=== PATIENT | male | born 1980 | race Two or more races ===

== ENCOUNTER 2017-04-17 17:55 | Emergency (ER) | payer MEDICAID ==
[~2017-04-17] VITALS: Ht 172.7 cm; Wt 88.5 kg
[~2017-04-17 17:55] MED LIST: TRAMADOL
[2017-04-17 18:01] VITALS: BP 114/99
[2017-04-17] MEDS ORDERED: IBUPROFEN 600 MG TAB PO ONE (19:30)
== END 2017-04-17 22:07 ==
LOC: ER 18:00
DX: S43.101A Unspecified dislocation of right acromioclavicular joint, initial encounter (principal); S50.01XA Contusion of right elbow, initial encounter; S80.11XA Contusion of right lower leg, initial encounter; R51 Headache; F17.210 Nicotine dependence, cigarettes, uncomplicated; E78.5 Hyperlipidemia, unspecified; M10.9 Gout, unspecified; I48.91 Unspecified atrial fibrillation; M19.90 Unspecified osteoarthritis, unspecified site; Z88.0 Allergy status to penicillin; V43.62XA Car passenger injured in collision with other type car in traffic accident, initial encounter; Y93.89 Activity, other specified; Y92.488 Other paved roadways as the place of occurrence of the external cause; Y99.8 Other external cause status
CPT/HCPCS: 70450; 73030; 73070; 73590

== ENCOUNTER 2017-07-01 12:57 | Emergency (ER) | payer MEDICAID, OTHER ==
[~2017-07-01] VITALS: Ht 170.2 cm; Wt 94.3 kg
[2017-07-01 13:02] VITALS: BP 145/94
[2017-07-01] MEDS ORDERED: KETOROLAC TROMETH 60MG/2ML VIAL IM ONE (14:30)
== END 2017-07-01 15:17 | disposition home or self-care (01) ==
LOC: ER 12:57
DX: G89.29 Other chronic pain (principal); M54.42 Lumbago with sciatica, left side; M10.9 Gout, unspecified; F17.210 Nicotine dependence, cigarettes, uncomplicated; M54.5 Low back pain; E78.5 Hyperlipidemia, unspecified; M19.90 Unspecified osteoarthritis, unspecified site; R03.0 Elevated blood-pressure reading, without diagnosis of hypertension; Z88.0 Allergy status to penicillin; Z88.1 Allergy status to other antibiotic agents
CPT/HCPCS: 96372; 99283; J1885

== ENCOUNTER 2017-10-28 08:03 | Emergency (ER) | payer OTHER ==
[~2017-10-28] VITALS: Ht 172.7 cm; Wt 95.3 kg
[2017-10-28 08:09] VITALS: BP 169/83
== END 2017-10-28 08:57 | disposition home or self-care (01) ==
LOC: ER 08:03
DX: S61.304A Unspecified open wound of right ring finger with damage to nail, initial encounter (principal); E78.5 Hyperlipidemia, unspecified; M19.90 Unspecified osteoarthritis, unspecified site; F17.210 Nicotine dependence, cigarettes, uncomplicated; F12.10 Cannabis abuse, uncomplicated; F15.10 Other stimulant abuse, uncomplicated; Z88.0 Allergy status to penicillin; W22.8XXA Striking against or struck by other objects, initial encounter; Y93.89 Activity, other specified; Y92.89 Other specified places as the place of occurrence of the external cause; Y99.8 Other external cause status

== ENCOUNTER 2019-03-29 10:14 | Emergency (ER) | payer MEDICAID ==
[~2019-03-29] VITALS: Ht 172.7 cm; Wt 81.6 kg
[2019-03-29 10:31] VITALS: BP 125/76
== END 2019-03-29 12:45 | disposition home or self-care (01) ==
LOC: ER 10:14
DX: S51.811A Laceration without foreign body of right forearm, initial encounter (principal); M19.90 Unspecified osteoarthritis, unspecified site; M10.9 Gout, unspecified; E78.5 Hyperlipidemia, unspecified; Z88.0 Allergy status to penicillin; W26.0XXA Contact with knife, initial encounter; Y93.89 Activity, other specified; Y92.89 Other specified places as the place of occurrence of the external cause; Y99.8 Other external cause status

== ENCOUNTER 2021-09-03 17:45 | Emergency (ER) | payer MEDICAID ==
[~2021-09-03] VITALS: Ht 170.2 cm; Wt 93.0 kg
[2021-09-03 18:05] VITALS: BP 151/97
[2021-09-03] MEDS ORDERED: KETOROLAC TROMETH 60MG/2ML VIAL IM ONE (20:00)
[2021-09-03] MEDS ORDERED: CLIN300C8 PO (20:36)
[2021-09-03] MEDS ORDERED: IBUP800T26 PO (20:36)
== END 2021-09-03 20:59 | disposition home or self-care (01) ==
LOC: ER 17:45
DX: R22.0 Localized swelling, mass and lump, head (principal); E78.5 Hyperlipidemia, unspecified; M10.9 Gout, unspecified; F17.210 Nicotine dependence, cigarettes, uncomplicated; Z79.1 Long term (current) use of non-steroidal anti-inflammatories (NSAID); Z79.2 Long term (current) use of antibiotics; Z79.899 Other long term (current) drug therapy; Z88.0 Allergy status to penicillin
CPT/HCPCS: 70486; 96372; 99284; J1885

== ENCOUNTER 2021-11-21 02:14 | Emergency (ER) | payer MEDICAID ==
[~2021-11-21] VITALS: Ht 172.7 cm; Wt 190.0 kg
[~2021-11-21 02:14] MED LIST changes: +CLIN300C8 PO; +IBUP800T26 PO
[2021-11-21 02:30] VITALS: BP 112/66
== END 2021-11-21 06:08 | disposition home or self-care (01) ==
LOC: ER 02:14
DX: L84 Corns and callosities (principal); M79.672 Pain in left foot; M79.671 Pain in right foot; M10.9 Gout, unspecified; E78.5 Hyperlipidemia, unspecified; F17.210 Nicotine dependence, cigarettes, uncomplicated; Z79.1 Long term (current) use of non-steroidal anti-inflammatories (NSAID); Z79.2 Long term (current) use of antibiotics; Z88.0 Allergy status to penicillin

== ENCOUNTER 2024-12-21 20:09 | Emergency (ER) | payer MEDICAID ==
[~2024-12-21] VITALS: Ht 170.2 cm; Wt 86.0 kg
[~2024-12-21 20:09] MED LIST changes: +CLIN1CAP70 PO; -CLIN300C8 PO; +IBUP-1455 PO; -IBUP800T26 PO
[2024-12-21 20:10] VITALS: BP 144/79; PULSE 90; RESP 16; TEMP 97.9; O2SAT 94
--- NOTE | 2024-12-21 21:11 | DVH ---
XY CHEST TWO VIEWS ROUTINE INDICATION: roductive cough/fever TECHNIQUE: Two views of the chest COMPARISON: None FINDINGS/IMPRESSION: LUNGS: Alveolar opacity in the right lung base. Correlate for infiltrate. MEDIASTINUM: Unremarkable. BONES: No acute osseous abnormality. OTHER: None.
== END 2024-12-21 23:39 | disposition left against medical advice (07) ==
LOC: ER 20:09
DX: R05.9 Cough, unspecified (principal); M79.10 Myalgia, unspecified site; Z53.21 Procedure and treatment not carried out due to patient leaving prior to being seen by health care provider
CPT/HCPCS: 71046

== ENCOUNTER 2024-12-22 18:26 | Inpatient (IN) | payer MEDICAID ==
[~2024-12-22] VITALS: Ht 170.2 cm; Wt 79.2 kg
--- NOTE | 2024-12-22 18:57 | ED.PDOC ---
History of Present Illness HPI Comments 44 y/o homeless M presents with c/c of green phlegm production and chest congestion for 2x days. Patient was seen here last night by this provider chest x-ray was done lobby was checked several times along with outside patient admitted that he eloped. Reports some shortness of breath denies chest pain. Does note chills and subjective fevers. Denies difficulty breathing. Denies recreational drug use Chief Complaint: Flu like Time Seen by MD: 18:45 Primary Care Provider: Gonzalo Griffin Notes: Nurses Notes, Medications, Allergies Allergies: Coded Allergies: Penicillins (Verified Allergy, Severe, SWELLING, 10/07/09) Uncoded Allergies: PENICILLIN (Allergy, Unknown, 12/12/15) Home Meds Active Scripts Clindamycin Hcl (Clindamycin Hcl) 300 Mg Cap, 1 CAP PO TID for 5 Days, #15 CAP 0 Refills Prov:AVEL STRATTON 09/03/21 Ibuprofen Micronized (Ibuprofen) 800 Mg Tab, 800 MG PO PRN, #30 TAB 0 Refills Prov:AVEL STRATTON 09/03/21 Reported Medications [Tramadol] No Conflict Check 10/07/09 Information Source: Patient Mode of Arrival: Ambulatory Severity: Moderate Timing: Days Duration: Since onset Past Medical History PAST MEDICAL HISTORY: Arthritis, Gout, High Lipids Surgical History: Denies all surgeries Family History Family History: Unknown Social History Smoker: Cigarettes Alcohol: Occasionally Drugs: Marijuana, Methamphetamine Lives In: Home All Other Systems: Reviewed and Negative (As per HPI) Physical Exam General Appearance: No Apparent Distress, Normal HEENT: Normal ENT Inspection, Pharynx Normal, TMs Normal Neck: Full Range of Motion, Non-Tender Respiratory: Decreased Breath Sounds, No Respiratory Distress, Normal Breath Sounds Cardiovascular: No Edema, No JVD, No Murmur, No Gallop, Normal Peripheral Pulses, Regular Rate/Rhythm Breast Exam: Deferred Gastrointestinal: No Organomegaly, Non Tender, No Pulsatile Mass, Normal Bowel Sounds, Soft Genitalia: Deferred Pelvic: Deferred Rectal: Deferred Extremities: Normal capillary refill, Normal range of motion, No pedal edema Musculoskeletal : Apperance: Normal Neurologic: Alert, No Motor Deficits, Normal Affect, Normal Mood, No Sensory Deficits Cerebellar Function: Normal Reflexes: NOT DONE Skin: Dry, Normal Color, Warm Lymphatic: No Adenopathy Was a procedure done? Was a procedure done?: No Differential Dx Considerations may include: URI, viral syndrome, among others X-Ray, Labs, Meds, VS Vital Signs Date Time Temp Pulse Resp B/P (MAP) Pulse Ox O2 Delivery O2 Flow Rate FiO2 12/22/24 19:55 21 98 Room Air* 0 21 21 12/22/24 18:28 99.4 91 18 121/85 98 99.4 Lab Test 12/22/24 20:04 Range/Units White Blood Count 16.1 H 4.4-10.8 10^3/uL Red Blood Count 4.46 L 4.5-5.90 10^6/uL Hemoglobin 14.1 13.5-17.5 g/dL Hematocrit 41.4 41.0-53.0 % Mean Corpuscular Volume 92.7 80.0-100.0 fL Mean Corpuscular Hemoglobin 31.7 28.0-32.0 pg Mean Corpuscular Hemoglobin Concent 34.1 32.0-36.0 g/dL Red Cell Distribution Width 13.3 11.8-14.3 % Platelet Count 274 140-450 10^3/uL Mean Platelet Volume 7.9 6.9-10.8 fL Neutrophils (%) (Auto) 83.7 H 37.0-80.0 % Lymphocytes (%) (Auto) 6.2 L 10.0-50.0 % Monocytes (%) (Auto) 10.0 0.0-12.0 % Eosinophils (%) (Auto) 0.0 0.0-7.0 % Basophils (%) (Auto) 0.1 0.0-2.0 % Neutrophils # (Auto) 13.5 H 1.6-8.6 10 ^3/uL Lymphocytes # (Auto) 1.0 0.4-5.4 10 ^3/uL Monocytes # (Auto) 1.6 H 0-1.3 10 ^3/uL Eosinophils # (Auto) 0 0-0.8 10 ^3/uL Basophils # (Auto) 0 0-0.2 10 ^3/uL Nucleated Red Blood Cells 0.0 % Sodium Level 136 136-145 mmol/L Potassium Level 3.6 3.5-5.1 mmol/L Chloride Level 102 98-107 mmol/L Carbon Dioxide Level 24 20-31 mmol/L Anion Gap 10 5-15 Blood Urea Nitrogen 10 9-23 mg/dL Creatinine 0.72 0.700-1.30 mg/dL Glomerular Filtration Rate Calc 116 >90 mL/min BUN/Creatinine Ratio 13.9 10.0-20.0 Serum Glucose 106 74-106 mg/dL Lactic Acid Level 1.2 0.4-2.0 mmol/L Calcium Level 8.8 8.7-10.4 mg/dL Total Bilirubin 1.8 H 0.2-1.0 mg/dL Aspartate Amino Transferase (AST) 14 13-40 U/L Alanine Aminotransferase (ALT) 9 7-40 U/L Alkaline Phosphatase 140 H 46-116 U/L Total Protein 7.6 5.7-8.2 g/dL Albumin 4.4 3.2-4.8 g/dL Current Medications Medications (Trade) Dose Ordered Sig/Elena Route Start Time Stop Time Status Last Admin Albuterol (Ventolin Medneb) 2.5 mg ONCE ONCE NEB 12/22/24 19:45 12/22/24 19:46 DC 12/22/24 20:04 Ipratropium [place] (Atrovent Medneb) 0.5 mg ONCE ONCE NEB 12/22/24 19:45 12/22/24 19:46 DC 12/22/24 20:04 X-Ray, Labs, Meds, VS Comment IMAGING: CHEST X-RAY MPRESSION: 1. Right lower and middle lobe pneumonia. LABS: CBC , white count 16.1 CMP, within normal limits Lactic acid, 1.2 negative Sputum culture pending PLAN: Chest x-ray shows right lower middle lobe pneumonia. Patient is homeless currently at high risk of noncompliance with outpatient treatment. Patient placed for hospitalist for admission right lower and middle lobe pneumonia IV antibiotics. We will start patient on azithromycin IV piggyback along with duo neb breathing treatments. Time of 1ST Reevaluation: 19:15 Reevaluation 1ST: Unchanged Time of 2ND Reevaluation: 19:37 Reevaluation 2ND: Unchanged Patient Education/Counseling: Diagnosis, Treatment, Need For Follow Up Family Education/Counseling: No Family Present SEPSIS Sepsis Screen Date sepsis recognized/suspect: Dec 22, 2024 Time Sepsis recognized/suspect: 1828 Recent Procedure: No On Antibiotic Therapy: No Respiratory Rate >20: No Heart Rate >90: No Temp<36 C (96.8 F) or >38.3 C: No SBP <90 or MAP <65 mmHG: No New Acute Mental Status Change: No Is the patient on CPAP, BIPAP,: No Physician Orders Chest Two Views Routine (12/22/24 18:47) Blood Culture (12/22/24 19:38) Heplock Iv (12/22/24 ) Azithromycin 500mg/ 250ml (Zithromax 50 (12/22/24 19:45) Respiratory Culture W/ Gs (12/22/24 19:38) Med Neb Initial Treatment (12/22/24 19:38) Pulse Oximetry (12/22/24 ) Admit (12/22/24 20:57) Code Status (12/22/24 20:57) Sodium Chloride 0.9% (12/22/24 21:00) Oxygen Per Hour (12/22/24 20:57) Hydrocodone-Acet 5/325mg Tab ([place] 5/32 (12/22/24 21:00) Ondansetron Hcl (Zofran) (12/22/24 21:00) Enoxaparin Sodium (Lovenox) (12/23/24 10:00) Complete Blood Count (12/23/24 04:00) Comprehensive Metabolic Panel (12/23/24 04:00) Nitroglycerin Sublingual (Ntrostat Subli (12/22/24 21:00) Morphine Sulfate Injection (12/22/24 21:00) Oxygen By Nasal Cannula (12/22/24 20:57) Stat Ekg For Chest Pain (12/22/24 20:57) Notify Md Of Changes From Base (12/22/24 20:57) Emergency Dysrhythmia Protocol (12/22/24 20:57) Levofloxacin 500mg (Levaquin 500mg/ 100m (12/23/24 10:00) Azithromycin 500mg/ 250ml (Zithromax 50 (12/23/24 10:00) Regular Diet (12/23/24 Breakfast) Vital Signs Date Time Temp Pulse Resp B/P (MAP) Pulse Ox O2 Delivery O2 Flow Rate FiO2 12/22/24 19:55 21 98 Room Air* 0 21 21 12/22/24 18:28 99.4 91 18 121/85 98 99.4 Laboratory Tests Test 12/22/24 20:04 Lactic Acid Level 1.2 mmol/L (0.4-2.0) White Blood Count 16.1 10^3/uL (4.4-10.8) H Medications Medications Dose Ordered Sig/Elena Route Start Time Stop Time Status Last Admin Dose Admin Albuterol 2.5 mg ONCE ONCE NEB 12/22/24 19:45 12/22/24 19:46 DC 12/22/24 20:04 Ipratropium [place] 0.5 mg ONCE ONCE NEB 12/22/24 19:45 12/22/24 19:46 DC 12/22/24 20:04 Departure 1 Departure Time of Disposition: 19:37 Impression: Primary Impression: Pneumonia Qualified Codes: J18.9 - Pneumonia, unspecified organism Additional Impression: Leukocytosis Qualified Codes: D72.829 - Elevated white blood cell count, unspecified Disposition: ADMITTED INPATIENT Condition: Stable Discharged With: Self Critical Care Note Critical Care Time?: No Stability Stability form required: No Heart Score Heart Score: Heart Score Response (Comments) Value History N/A 0 EKG N/A 0 Age N/A 0 Risk Factors N/A 0 Troponin N/A 0 Total 0 I personally scribed for ER ([email or web address]) on 12/22/24 at 18:57. Electronically submitted by Bhupinder Borrero ([email or web address]). ER Dec 22, 2024 18:57 LACEY [facility] Dec 22, 2024 19:37
--- NOTE | 2024-12-22 19:31 | DVH ---
EXAM: XY CHEST TWO VIEWS ROUTINE CLINICAL HISTORY: Productive cough, fever x2 days TECHNIQUE: Frontal and lateral views of the chest WID: COMPARISON: XY CHEST TWO VIEWS ROUTINE on DOS: 12/21/24 FINDINGS: Lines and tubes: None Chest: The heart size and pulmonary vasculature is within normal limits. Airspace consolidation in the medial right lung base in the right lower and middle lobes on lateral p rojection. No pneumothorax or pleural effusion. The osseous structures are grossly intact. IMPRESSION: 1. Right lower and middle lobe pneumonia.
[2024-12-22] MEDS: ALBUTEROL SULF 2.5 MG/0.5ML(0.5%) NEB SOLN NEB ONE (20:04)
[2024-12-22] MEDS: IPRATROPIUM BROM 0.5 MG/2.5ML INH SOL NEB ONE (20:04)
[2024-12-22 20:24] LABS: Hematocrit 41.4 % (41.0-53.0); Hemoglobin 14.1 g/dL (13.5-17.5); Mean Corpuscular Hemoglobin 31.7 pg (28.0-32.0); Mean Corpuscular Volume 92.7 fL (80.0-100.0); Nucleated Red Blood Cells % 0.0 %
[2024-12-22 20:34] LABS: Albumin 4.4 g/dL (3.2-4.8); Anion Gap 10 (5-15); BUN/Creatinine Ratio 13.9 (10.0-20.0); Blood Urea Nitrogen 10 mg/dL (9-23); Calcium 8.8 mg/dL (8.7-10.4); Carbon Dioxide 24 mmol/L (20-31); Chloride 102 mmol/L (98-107); Glucose 106 mg/dL (74-106); Potassium 3.6 mmol/L (3.5-5.1); Sodium 136 mmol/L (136-145); Total Protein 7.6 g/dL (5.7-8.2)
[2024-12-22 20:47] LABS: Alanine Aminotransferase 9 U/L (7-40); Alkaline Phosphatase 140 U/L (46-116); Bilirubin, Total 1.8 mg/dL (0.2-1.0)
[2024-12-22] MEDS ORDERED: NITROGLYCERIN 0.4 MG SL TAB SL PRN (21:00)
[2024-12-22] MEDS ORDERED: MORPHINE SULFATE INJ 2 MG/ml SYRG IV PRN (21:00)
--- NOTE | 2024-12-22 21:03 | DVHHPRES ---
History of Present Illness Resident Creating Document: MELODIE MURPHY RESIDENT History of Present Illness History of Present Illness 44 YO homeless M with no significant past medical history presents with chief complaint of cough with green phlegm production and chest congestion for 2x days. . The patient reports having fever and chills as part of his current presentation. He has taken some medication for his symptoms. The patient quit smoking 3 days ago after previously smoking cigarettes. He denies alcohol use. The patient reports having no family members in the area. Past Social History Former smoker Review of Systems Review of Systems CONSTITUTIONAL: Admits fever and chills HEENT: Denies changes in vision and hearing. RESPIRATORY: Admits to cough and phlegm CV: Denies palpitations and chest pain. GI: Denies abdominal pain, nausea, vomiting and diarrhea. : Denies dysuria and urinary frequency. MSK: Denies myalgia and joint pain. SKIN: Denies rash and pruritus. NEUROLOGICAL: Denies headache Allergies: Coded Allergies: Penicillins (Verified Allergy, Severe, SWELLING, 10/07/09) Uncoded Allergies: PENICILLIN (Allergy, Unknown, 12/12/15) Exam Vital Signs Vital Signs Date Time Temp Pulse Resp B/P (MAP) Pulse Ox O2 Delivery O2 Flow Rate FiO2 12/22/24 19:55 21 98 Room Air* 0 21 21 12/22/24 18:28 99.4 91 121/85 99.4 Exam GENERAL: Mild acute distress HEENT: EOMI, Moist mucous membranes. No scleral icterus. No cervical lymphadenopathy. LUNGS: Clear to auscultation bilaterally. No accessory muscle use. CARDIOVASCULAR: Regular rate and rhythm. No murmur. No JVD. ABDOMEN: Soft, nontender and nondistended. No palpable masses. EXTREMITIES: No edema. Nontender. SKIN: No rashes or lesions. Warm. NEUROLOGIC: Alert and oriented X3 Labs/Xrays Labs Test 12/22/24 20:04 Range/Units White Blood Count 16.1 H 4.4-10.8 10^3/uL Red Blood Count 4.46 L 4.5-5.90 10^6/uL Hemoglobin 14.1 13.5-17.5 g/dL Hematocrit 41.4 41.0-53.0 % Mean Corpuscular Volume 92.7 80.0-100.0 fL Mean Corpuscular Hemoglobin 31.7 28.0-32.0 pg Mean Corpuscular Hemoglobin Concent 34.1 32.0-36.0 g/dL Red Cell Distribution Width 13.3 11.8-14.3 % Platelet Count 274 140-450 10^3/uL Mean Platelet Volume 7.9 6.9-10.8 fL Neutrophils (%) (Auto) 83.7 H 37.0-80.0 % Lymphocytes (%) (Auto) 6.2 L 10.0-50.0 % Monocytes (%) (Auto) 10.0 0.0-12.0 % Eosinophils (%) (Auto) 0.0 0.0-7.0 % Basophils (%) (Auto) 0.1 0.0-2.0 % Neutrophils # (Auto) 13.5 H 1.6-8.6 10 ^3/uL Lymphocytes # (Auto) 1.0 0.4-5.4 10 ^3/uL Monocytes # (Auto) 1.6 H 0-1.3 10 ^3/uL Eosinophils # (Auto) 0 0-0.8 10 ^3/uL Basophils # (Auto) 0 0-0.2 10 ^3/uL Nucleated Red Blood Cells 0.0 % Sodium Level 136 136-145 mmol/L Potassium Level 3.6 3.5-5.1 mmol/L Chloride Level 102 98-107 mmol/L Carbon Dioxide Level 24 20-31 mmol/L Anion Gap 10 5-15 Blood Urea Nitrogen 10 9-23 mg/dL Creatinine 0.72 0.700-1.30 mg/dL Glomerular Filtration Rate Calc 116 >90 mL/min BUN/Creatinine Ratio 13.9 10.0-20.0 Serum Glucose 106 74-106 mg/dL Lactic Acid Level 1.2 0.4-2.0 mmol/L Calcium Level 8.8 8.7-10.4 mg/dL Total Bilirubin 1.8 H 0.2-1.0 mg/dL Aspartate Amino Transferase (AST) 14 13-40 U/L Alanine Aminotransferase (ALT) 9 7-40 U/L Alkaline Phosphatase 140 H 46-116 U/L Total Protein 7.6 5.7-8.2 g/dL Albumin 4.4 3.2-4.8 g/dL SEPSIS Sepsis Screen Date sepsis recognized/suspect: Dec 22, 2024 Time Sepsis recognized/suspect: 1829 Recent Procedure: No On Antibiotic Therapy: No Respiratory Rate >20: No Heart Rate >90: No Temp<36 C (96.8 F) or >38.3 C: No SBP <90 or MAP <65 mmHG: No New Acute Mental Status Change: No Is the patient on CPAP, BIPAP,: No Physician Orders Chest Two Views Routine (12/22/24 18:47) Blood Culture (12/22/24 19:38) Heplock Iv (12/22/24 ) Azithromycin 500mg/ 250ml (Zithromax 50 (12/22/24 19:45) Respiratory Culture W/ Gs (12/22/24 19:38) Med Neb Initial Treatment (12/22/24 19:38) Pulse Oximetry (12/22/24 ) Admit (12/22/24 20:57) Code Status (12/22/24 20:57) 0.9% Ns 1000 Ml (12/22/24 21:00) Oxygen Per Hour (12/22/24 20:57) Hydrocodone-Acet 5/325mg Tab ([place] 5/32 (12/22/24 21:00) Ondansetron Hcl (Zofran) (12/22/24 21:00) Enoxaparin Sodium (Lovenox) (12/23/24 10:00) Complete Blood Count (12/23/24 04:00) Comprehensive Metabolic Panel (12/23/24 04:00) Nitroglycerin Sublingual (Ntrostat Subli (12/22/24 21:00) Morphine Sulfate Injection (12/22/24 21:00) Oxygen By Nasal Cannula (12/22/24 20:57) Stat Ekg For Chest Pain (12/22/24 20:57) Notify Md Of Changes From Base (12/22/24 20:57) Emergency Dysrhythmia Protocol (12/22/24 20:57) Levofloxacin Levaquin (12/23/24 10:00) Azithromycin 500mg/ 250ml (Zithromax 50 (12/23/24 10:00) Regular Diet (12/23/24 Breakfast) Vital Signs Date Time Temp Pulse Resp B/P (MAP) Pulse Ox O2 Delivery O2 Flow Rate FiO2 12/22/24 19:55 21 98 Room Air* 0 21 21 12/22/24 18:28 99.4 91 18 121/85 98 99.4 Laboratory Tests Test 12/22/24 20:04 Lactic Acid Level 1.2 mmol/L (0.4-2.0) White Blood Count 16.1 10^3/uL (4.4-10.8) H Medications Medications Dose Ordered Sig/Elena Route Start Time Stop Time Status Last Admin Dose Admin Albuterol 2.5 mg ONCE ONCE NEB 12/22/24 19:45 12/22/24 19:46 DC 12/22/24 20:04 2.5 MG Ipratropium [place] 0.5 mg ONCE ONCE NEB 12/22/24 19:45 12/22/24 19:46 DC 12/22/24 20:04 0.5 MG Assessment/Plan Assessment/Plan Assessment & Plan # sepsis due to pneumonia # community-acquired pneumonia # Gram-positive/Gram-negative bacterial pneumonia - IV fluid - admitting WBC 16.1 - temperature is 99.8, heart rate was 91, respiratory rate 21 - chest x-ray shows right lower lobe pneumonia - start levofloxacin IV, azithromycin IV # Recent smoking cessation - counseled patient to keep quitting smoking for more than 10 minutes # homelessness - Social support needs - Social work consultation to arrange housing placement Goals of care discussed with patient for 32 minutes: FULL CODE STATUS Plan discussed with Dr. Cano Plan discussed with: Patient My Orders Orders - MELODIE MURPHY RESIDENT Procedure Category Date Status Time Admit ADMIT 12/22/24 Verified 20:57 Code Status CODE 12/22/24 Verified 20:57 0.9% Ns 1000 Ml PHA 12/22/24 Verified 21:00 Oxygen Per Hour RT 12/22/24 Verified 20:57 Hydrocodone-Acet PHA 12/22/24 Verified 5/325mg Tab ([place] 21:00 Ondansetron Hcl PHA 12/22/24 Verified (Zofran) 21:00 Enoxaparin Sodium PHA 12/23/24 Verified (Lovenox) 10:00 Complete Blood Count LAB 12/23/24 Verified 04:00 Comprehensive LAB 12/23/24 Verified Metabolic Panel 04:00 Nitroglycerin PHA 12/22/24 Verified Sublingual (Ntrostat 21:00 Morphine Sulfate PHA 12/22/24 Verified Injection 21:00 Oxygen By Nasal RT 12/22/24 Verified Cannula 20:57 Stat Ekg For Chest PARTHA 12/22/24 Verified Pain 20:57 Notify Md Of Changes PARTHA 12/22/24 Verified From Base 20:57 Emergency Dysrhythmia [facility] 12/22/24 Verified Protocol 20:57 Levofloxacin Levaquin PHA 12/23/24 Verified 10:00 Azithromycin 500mg/ PHA 12/23/24 Verified 250ml (Zithromax 50 10:00 Regular Diet DIET 12/23/24 Verified Breakfast Date of Service: Dec 22, 2024 Billing Provider: ESPERANZA CANO MD, RASHEDUL RESIDENT Dec 22, 2024 21:03
[2024-12-22] MEDS: SODIUM CHLORIDE 0.9% 1,000 ML IV SCH (22:02)
[2024-12-23] VITALS (8 sets, daily range): BP systolic 100–129; BP diastolic 58–85; PULSE 61–79; RESP 16–20; TEMP 98–99.8; O2SAT 93–100
[2024-12-23] MEDS: HYDROcodone-ACET 5/325MG TAB PO PRN (00:57)
[2024-12-23] MEDS: AZITHROMYCIN 500MG/ 250ML 250 ML IV ONE (00:59)
[2024-12-23 06:06] LABS: Hematocrit 39.0 % (41.0-53.0); Hemoglobin 13.5 g/dL (13.5-17.5); Mean Corpuscular Hemoglobin 31.9 pg (28.0-32.0); Mean Corpuscular Volume 92.2 fL (80.0-100.0); Nucleated Red Blood Cells % 0.0 %
[2024-12-23 06:25] LABS: Alanine Aminotransferase 12 U/L (7-40); Albumin 4.2 g/dL (3.2-4.8); Anion Gap 11 (5-15); Calcium 9.1 mg/dL (8.7-10.4); Carbon Dioxide 27 mmol/L (20-31); Chloride 100 mmol/L (98-107); Glucose 99 mg/dL (74-106); Potassium 3.7 mmol/L (3.5-5.1); Sodium 138 mmol/L (136-145)
[2024-12-23 06:26] LABS: BUN/Creatinine Ratio 13.9 (10.0-20.0); Blood Urea Nitrogen 10 mg/dL (9-23); Total Protein 7.3 g/dL (5.7-8.2)
[2024-12-23 06:53] LABS: Alkaline Phosphatase 138 U/L (46-116); Bilirubin, Total 1.6 mg/dL (0.2-1.0)
[2024-12-23] MEDS ORDERED: LORazepam 2MG/ML-1ML VIAL IV ONE (08:30)
[2024-12-23] MEDS ORDERED: LORazepam 2MG/ML-1ML VIAL IV PRN (08:30)
[2024-12-23] MEDS: LORazepam 2MG/ML-1ML VIAL IV ONE (08:30)
[2024-12-23 08:47] LABS: Magnesium 2.0 mg/dL (1.6-2.6)
--- NOTE | 2024-12-23 09:01 | DVHPNRES ---
Progress Note Date Seen: Dec 23, 2024 Resident Creating Document: RADHA MAYO RESIDENT Medical Necessity Reason Pt with a Central, PICC or Fol: No Subjective Review of Systems 44-year-old male with no significant past medical history, significant methamphetamine, fentanyl and opiate abuse, occasional alcohol and smoking, presented to the ER with altered mental status, 2 day history of fever, cough, shortness of breaths, pleuritic chest pain. He reports shortness of breath related with breathing, he denies orthopnea or paroxysmal nocturnal dyspnea. His cough is productive, not mixed with blood. He reports having muscle cramps for last 2 weeks associated with insomnia. He denies any other complaints. The patient went outside multiple times to smoke. The patient was not oriented to time and place. The patient is admitted for further evaluation as management. Past medical history: As per HPI Past surgical history, home medications: Not obtained due to patient's mental status. Social history: Occasional alcohol, smoking, marijuana, methamphetamine use. Objective vital signs Vital Sign Date Time Temp Pulse Resp B/P (MAP) Pulse Ox O2 Delivery O2 Flow Rate FiO2 12/23/24 05:12 63 16 114/76 (89) 100 12/23/24 03:37 Room Air* 0 21 12/23/24 03:37 98.0 98.0 Total Intake and Output 12/22/24 12/22/24 12/23/24 15:00 23:00 07:00 Intake Total 120 ml Balance 120 ml medications Current Medications Medications Dose Ordered Sig/Elena Route Start Time Stop Time Status Last Admin Dose Admin Sodium Chloride 1,000 ml @ 120 mls/hr Q8H20M IV 12/22/24 21:00 12/23/24 05:32 120 MLS/HR Acetaminophen/ Hydrocodone Bitart 1 tab Q4HP PRN PO 12/22/24 21:00 12/23/24 00:57 1 TAB Ondansetron HCl 4 mg Q4HP PRN IV 12/22/24 21:00 Enoxaparin Sodium 40 mg DAILY SC 12/23/24 10:00 Levofloxacin/ Dextrose 100 ml @ 100 mls/hr DAILY IV 12/23/24 10:00 Azithromycin 250 ml @ 125 mls/hr DAILY IV 12/23/24 10:00 Lorazepam 1 mg Q2HP PRN IV 12/23/24 08:30 Folic Acid 1 mg DAILY PO 12/23/24 10:00 Examination Pt is lying on bed General Appearance: Alert, Oriented X3, Cooperative, Mild distress HEENT: Atraumatic, Mucous membranes moist/pink Respiratory: Mild crackles, Normal air movement, No added sounds Cardiovascular: Regular rate, Normal S1, Normal S2, No murmurs Abdominal/ : Active bowel sounds, Soft, no distention, no tenderness Extremities: No edema, Normal pulses, No tenderness/swelling Skin: No Significant rash, except past surgical scars Neuro: Normal speech, sensorimotor deficits none Psych/Mental Status: Mental status NL, Mood NL Nurse was there as network support engineer during examination laboratory and microbiology Laboratory Tests 12/23/24 04:54 Test 12/23/24 04:54 Range/Units Serum Glucose 99 74-106 mg/dL Labs and/or images reviewed: Labs reviewed by me, Image(s) reviewed by me Problem List/Assessment/Plan Problem List/Assessment/Plan # sepsis due to pneumonia due to Gram-positive or Gram-negative organism. # community-acquired pneumonia due to Gram-positive or Gram-negative organism # Gram-positive/Gram-negative bacterial pneumonia - IV fluid - admitting WBC 16.1 - temperature is 99.8, heart rate was 91, respiratory rate 21 - chest x-ray shows right lower lobe pneumonia - start levofloxacin IV, azithromycin IV # methamphetamine, fentanyl, opiates positive in UDS Monitor signs symptoms for withdrawal [employer] patient on cessation upon improvement of mental status. # smoking - counseled patient to keep quitting smoking for more than 10 minutes # homelessness - Social support needs - Social work consultation to arrange housing placement Goals of care discussed with patient for 32 minutes: FULL CODE STATUS Plan discussed with: Patient, Other (RN) My Orders My Orders Orders - RADHA MAYO RESIDENT Procedure Category Date Status Time Drug Screen LAB 12/23/24 Logged 08:20 Urinalysis LAB 12/23/24 Logged 08:20 Electrocardigram EKG 12/23/24 Logged 08:20 Etoh Withdrawal PARTHA 12/23/24 In Process Assessment 08:20 Etoh Withdrawal PARTHA 12/23/24 In Process Assessment 08:20 Date of Service: Dec 23, 2024 Billing Provider: SRIDHAR JIMENEZ MD Common Visit Codes: [id number] INP/OBS CARE(HIGH) RADHA MAYO RESIDENT Dec 23, 2024 09:01 SRIDHAR JIMENEZ MD Dec 25, 2024 10:02
[2024-12-23] MEDS: THIAMINE 100mg/ml INJ (200mg/2ml VIAL) IV ONE (10:01)
[2024-12-23] MEDS: FOLIC ACID 1 MG TAB PO SCH (10:02)
[2024-12-23] MEDS: ENOXAPARIN SOD 40 MG/0.4 ML SYRINGE SC SCH (10:02)
[2024-12-23] MEDS: AZITHROMYCIN 500MG/ 250ML 250 ML IV SCH (11:14)
[2024-12-23 12:26] LABS: Urine Protein, UAD 1+ (Negative)
[2024-12-23 12:34] LABS: Opiate Scree,Urine Pos (NEGATIVE)
[2024-12-23 12:35] LABS: Amphetamine Screen, Urine Pos (NEGATIVE); Barbiturate Scree,Urine Neg (NEGATIVE); Benzodiazephine Screen, Urine Neg (NEGATIVE); Cannabinoid Screen, Urine Neg (NEGATIVE); Cocaine Screen, Urine Neg (NEGATIVE); Phencyclidine Screen, Urine Neg (NEGATIVE)
[2024-12-23 13:01] LABS: COVID19 ANTIGEN SOFIA FIA NEGATIVE (NEGATIVE)
[2024-12-24 01:00] VITALS: BP 126/93; PULSE 74; RESP 18; TEMP 98.5; O2SAT 96
[2024-12-24 05:00] VITALS: BP 133/90; PULSE 65; RESP 17; TEMP 98.9; O2SAT 94
[2024-12-24 06:46] LABS: Hematocrit 38.0 % (41.0-53.0); Hemoglobin 13.5 g/dL (13.5-17.5); Mean Corpuscular Hemoglobin 32.2 pg (28.0-32.0); Mean Corpuscular Volume 90.7 fL (80.0-100.0); Nucleated Red Blood Cells % 0.0 %
[2024-12-24 06:56] LABS: Anion Gap 11 (5-15); Carbon Dioxide 25 mmol/L (20-31); Chloride 103 mmol/L (98-107); Sodium 139 mmol/L (136-145)
[2024-12-24 06:58] LABS: Calcium 9.1 mg/dL (8.7-10.4)
[2024-12-24 07:03] LABS: BUN/Creatinine Ratio 13.2 (10.0-20.0); Blood Urea Nitrogen 9 mg/dL (9-23); Glucose 102 mg/dL (74-106); Potassium 3.5 mmol/L (3.5-5.1)
[2024-12-24] MEDS ORDERED: ACETAMINOPHEN 325 MG TAB PO PRN (08:15)
[2024-12-24 08:20] VITALS: PULSE 67; RESP 18; O2SAT 94
[2024-12-24 09:00] VITALS: BP 131/81; PULSE 67; RESP 18; TEMP 97.8; O2SAT 94
[2024-12-24] MEDS: ONDANSETRON HCL 4 MG/2 ML VIAL IV PRN (09:59)
[2024-12-24] MEDS ORDERED: levoFLOXacin 250 MG TAB PO SCH (10:00)
[2024-12-24 12:59] VITALS: BP 131/81; PULSE 67; RESP 18; TEMP 97.8; O2SAT 94
--- NOTE | 2024-12-24 13:22 | DVHDSRES ---
Discharge Summary Date of Admission Resident Creating Document: RADHA MAYO Dec 22, 2024 at 20:57 Date of Discharge: Dec 24, 2024 Admitting Diagnosis Pneumonia due to Gram-positive or Gram-negative organism Labs/Diagnostic Data: Laboratory Results Test 12/24/24 05:45 12/23/24 11:20 12/23/24 10:50 12/23/24 04:54 White Blood Count 11.5 10^3/uL (4.4-10.8) Red Blood Count 4.19 10^6/uL (4.5-5.90) Hemoglobin 13.5 g/dL (13.5-17.5) Hematocrit 38.0 % (41.0-53.0) Mean Corpuscular Volume 90.7 fL (80.0-100.0) Mean Corpuscular Hemoglobin 32.2 pg (28.0-32.0) Mean Corpuscular Hemoglobin Concent 35.5 g/dL (32.0-36.0) Red Cell Distribution Width 13.1 % (11.8-14.3) Platelet Count 312 10^3/uL (140-450) Mean Platelet Volume 8.5 fL (6.9-10.8) Neutrophils (%) (Auto) 85.2 % (37.0-80.0) Lymphocytes (%) (Auto) 7.1 % (10.0-50.0) Monocytes (%) (Auto) 7.5 % (0.0-12.0) Eosinophils (%) (Auto) 0.1 % (0.0-7.0) Basophils (%) (Auto) 0.1 % (0.0-2.0) Neutrophils # (Auto) 9.8 10 ^3/uL (1.6-8.6) Lymphocytes # (Auto) 0.8 10 ^3/uL (0.4-5.4) Monocytes # (Auto) 0.9 10 ^3/uL (0-1.3) Eosinophils # (Auto) 0 10 ^3/uL (0-0.8) Basophils # (Auto) 0 10 ^3/uL (0-0.2) Nucleated Red Blood Cells 0.0 % Sodium Level 139 mmol/L (136-145) Potassium Level 3.5 mmol/L (3.5-5.1) Chloride Level 103 mmol/L (98-107) Carbon Dioxide Level 25 mmol/L (20-31) Anion Gap 11 (5-15) Blood Urea Nitrogen 9 mg/dL (9-23) Creatinine 0.68 mg/dL (0.700-1.30) Glomerular Filtration Rate Calc 118 mL/min (>90) BUN/Creatinine Ratio 13.2 (10.0-20.0) Serum Glucose 102 mg/dL (74-106) Calcium Level 9.1 mg/dL (8.7-10.4) Influenza Type A Antigen Negative (Negative) Influenza Type B Antigen Negative (Negative) SARS-CoV-2 Antigen (Rapid) Negative (NEGATIVE) Urine Color Yellow (Yellow) Urine Clarity Clear (Clear) Urine pH 7.5 (5.0-9.0) Urine Specific [place] 1.030 (1.001-1.035) Urine Protein 1+ (Negative) Urine Ketones 2+ (Negative) Urine Blood Negative /uL (Negative) Urine Nitrite Negative (Negative) Urine Bilirubin Negative (Negative) Urine Urobilinogen 12 mg/dL (Negative) Urine Leukocyte Esterase Negative /uL (Negative) Urine RBC 36 /hpf (0 - 3) Urine Microscopic WBC 4 /HPF (0-3) Urine Squamous Epithelial Cells Few /hpf (<5) Urine Bacteria None seen /hpf (None Seen) Urine Glucose Trace mg/dL (Normal) Urine Opiates Screen Pos (NEGATIVE) Urine Fentanyl Screen Pos (NEGATIVE) Urine Barbiturates Screen Neg (NEGATIVE) Urine Phencyclidine Screen Neg (NEGATIVE) Urine Amphetamines Screen Pos (NEGATIVE) Urine Benzodiazepines Screen Neg (NEGATIVE) Urine Cocaine Screen Neg (NEGATIVE) Urine Cannabinoids Screen Neg (NEGATIVE) Magnesium Level 2.0 mg/dL (1.6-2.6) Total Bilirubin 1.6 mg/dL (0.2-1.0) Aspartate Amino Transferase (AST) 13 U/L (13-40) Alanine Aminotransferase (ALT) 12 U/L (7-40) Alkaline Phosphatase 138 U/L (46-116) Total Protein 7.3 g/dL (5.7-8.2) Albumin 4.2 g/dL (3.2-4.8) Plasma/Serum Blood Alcohol < 3.0 mg/dL (<10) Test 12/22/24 20:04 Lactic Acid Level 1.2 mmol/L (0.4-2.0) Other Laboratory Tests 12/24/24 05:45 Brief Hx & Hospital Course: 44-year-old male with no significant past medical history, significant methamphetamine, fentanyl and opiate abuse, occasional alcohol and smoking, presented to the ER with altered mental status, 2 day history of fever, cough, shortness of breaths, pleuritic chest pain. He reports shortness of breath related with breathing, he denies orthopnea or paroxysmal nocturnal dyspnea. His cough is productive, not mixed with blood. He reports having muscle cramps for last 2 weeks associated with insomnia. He denies any other complaints. The patient went outside multiple times to smoke. The patient was not oriented to time and place. The patient is admitted for further evaluation as management. Past medical history: As per HPI Past surgical history, home medications: Not obtained due to patient's mental status. Social history: Occasional alcohol, smoking, marijuana, methamphetamine use. On admission, the patient was diagnosed with sepsis due to pneumonia with Gram- positive or Gram-negative organism, was treated with IV fluid, started on IV levofloxacin and azithromycin IV based on chest x-ray finding of right lower lobe pneumonia. The patient was having altered mental status and withdrawing from multiple substances during his admission. He went outside multiple times to smoke marijuana and methamphetamine with other patient. Social Service was consulted to provide him with resources for homelessness. The patient was counseled on the side effects of drug abuse and cigarette smoking. On the day of discharge, the patient was hemodynamically stable and verbalized understanding of the discharge plan. Examination Pt is lying on bed General Appearance: Alert, Oriented X3, Cooperative, Mild distress HEENT: Atraumatic, Mucous membranes moist/pink Respiratory: Mild crackles, Normal air movement, No added sounds Cardiovascular: Regular rate, Normal S1, Normal S2, No murmurs Abdominal/ : Active bowel sounds, Soft, no distention, no tenderness Extremities: No edema, Normal pulses, No tenderness/swelling Skin: No Significant rash, except past surgical scars Neuro: Normal speech, sensorimotor deficits none Psych/Mental Status: Mental status NL, Mood NL Nurse was there as freight car cleaner during examination Operations or Procedures PATIENT: MIGUEL STEEN ACCT: [id number] UNIT: [id number] : 1980 LOC: ER ROOM / BED: / AGE / SEX: 44 / M ADM STATUS: REG ER SERVICE [id number] ORDERING PHYSICIAN: LACEY DAVIS PROCEDURE(s): CXR2 - CHEST TWO VIEWS ROUTINE REASON: Productive cough, fever x2 days ORDER NUMBER(s): [id number], ACCESSION NUMBER(s): [id number] EXAM: XY CHEST TWO VIEWS ROUTINE CLINICAL HISTORY: Productive cough, fever x2 days TECHNIQUE: Frontal and lateral views of the chest WID: COMPARISON: XY CHEST TWO VIEWS ROUTINE on DOS: 12/21/24 FINDINGS: Lines and tubes: None Chest: The heart size and pulmonary vasculature is within normal limits. Airspace consolidation in the medial right lung base in the right lower and middle lobes on lateral projection. No pneumothorax or pleural effusion. The osseous structures are grossly intact. IMPRESSION: 1. Right lower and middle lobe pneumonia. Condition at Discharge: Stable Final Diagnosis/Problems List # sepsis due to pneumonia due to Gram-positive or Gram-negative organism. # community-acquired pneumonia due to Gram-positive or Gram-negative organism # Gram-positive/Gram-negative bacterial pneumonia # methamphetamine, fentanyl, opiates positive in UDS # smoking # homelessness Discharge Disposition: Home Discharge Instruct/Medications Diet: Regular Activity: No Restrictions, As Tolerated Follow Up/Referral: FU with PCP and DC clinic in 1 week Scheduled Ibuprofen Micronized (Ibuprofen), 800 MG PO PRN Levofloxacin Hemihydrate (Levofloxacin), 750 MG PO DAILY Miscellaneous Medications [Tramadol], (Reported) Discontinued Medications Clindamycin Hcl (Clindamycin Hcl), 1 CAP PO TID Discharge Statement: "Patient was advised to return to the ER or call 911 if any headaches, dizziness, shortness of breath, chest pain, abdominal pain, bleeding, fevers, or worsening of medical condition. Patient was counseled about treatment plan, medications, possible side effects, patientverbalized understanding. All questions were answered to the best of my ability. This discharge took greater then 30 minutes in planning, reviewing documentation, counseling the patient, and discussing with other team members." ASSESSMENT ASSESSMENT Assessment Date of Service: Dec 24, 2024 Billing Provider: SRIDHAR JIMENEZ MD Common Visit Codes: 13832-VHV/OBS DISCH DAY >30min RADHA MAYO Dec 24, 2024 13:22 SRIDHAR JIMENEZ MD Dec 26, 2024 07:04
[2024-12-24] MEDS ORDERED: LEVO750T40 PO (13:40)
== END 2024-12-24 15:45 | disposition home or self-care (01) | DRG 720 ==
LOC: ER 18:28 → OVERFLOW 20:57 → WEST WING 12-23 15:28
PROVIDERS: ADMIT Internal Medicine; ATTEND Internal Medicine
DX: A41.50 Gram-negative sepsis, unspecified (principal); G92.8 Other toxic encephalopathy; J15.69 Pneumonia due to other Gram-negative bacteria; J15.9 Unspecified bacterial pneumonia; M10.9 Gout, unspecified; E78.5 Hyperlipidemia, unspecified; Z20.822 Contact with and (suspected) exposure to COVID-19; F15.10 Other stimulant abuse, uncomplicated; F11.10 Opioid abuse, uncomplicated; Z59.00 Homelessness unspecified; Z88.0 Allergy status to penicillin; Z87.891 Personal history of nicotine dependence; Z71.51 Drug abuse counseling and surveillance of drug abuser
CPT/HCPCS: 36415; 71046; 80048; 80053; 80307; 80320; 81001; 83605; 83735; 85025; 87040; 87426; 87804; 94640; G0378; J1956; J2405